=== PATIENT | female | born 1980 | race Caucasian/White ===

== ENCOUNTER 2017-11-21 20:27 | Emergency (ER) | payer MEDICAID ==
[~2017-11-21] VITALS: Ht 172.7 cm; Wt 81.6 kg
[2017-11-21 21:27] LABS: PLATELET COUNT 200 x10^3mcL (130-400); RED CELL DISTRIBUTION WIDTH 12.3 % (11.5-14.5)
[2017-11-21 21:35] LABS: BASOPHIL % 0 % (0-2); CALCIUM 8.6 mg/dL (8.5-10.1); CARBON DIOXIDE 26.9 mmol/L (21-32); CHLORIDE SERUM 104 mmol/L (98-107); GFR1 > 60 mL/min; GLUCOSE SERUM 97 mg/dL (74-106); POTASSIUM SERUM 3.3 mmol/L (3.5-5.1); SODIUM SERUM 139 mmol/L (136-145)
[2017-11-21 21:40] LABS: ALBUMIN 3.1 g/dL (3.4-5.0); ALKALINE PHOSPHATASE 88 U/L (46-116); ALT/SGPT 52 U/L (14-59); AST/SGOT 79 U/L (15-37); BILIRUBIN TOTAL 0.25 mg/dL (0.20-1.00); LIPASE 93 IU/L (73-393); TOTAL PROTEIN, SERUM 6.8 g/dL (6.4-8.2)
[2017-11-22 02:42] VITALS: BP 122/60
== END 2017-11-22 02:42 | disposition home or self-care (01) ==
LOC: ED 20:27
PROVIDERS: Emergency Medicine
DX: R07.89 Other chest pain (principal); R10.10 Upper abdominal pain, unspecified; F15.90 Other stimulant use, unspecified, uncomplicated
CPT/HCPCS: J2060; J2270; J2405; J7030; Q0092

== ENCOUNTER 2018-09-07 07:14 | Emergency (ER) | payer BC ==
[~2018-09-07] VITALS: Ht 170.2 cm; Wt 83.5 kg
[2018-09-07 07:21] VITALS: Ht 170.2 cm; Wt 83.5 kg
[2018-09-07 08:24] VITALS: BP 127/67
== END 2018-09-07 08:24 | disposition home or self-care (01) ==
LOC: ED 07:14
DX: J03.90 Acute tonsillitis, unspecified (principal); F17.210 Nicotine dependence, cigarettes, uncomplicated
CPT/HCPCS: 99406; J0696; J1100